=== PATIENT | male | born 1960 | race Caucasian/White ===

== ENCOUNTER 2018-05-23 09:02 | Day surgery (SDC) | payer OTHER ==
[~2018-05-23 09:02] MED LIST: ALBU90OI INH; AMOCLA875 PO; AMOX875 PO; CIPDEXSU RIGHTEAR; Cipro750 MG PO; Cleocin HCl300 MG PO; ERYT.5TO RIGHTEYE; Flonase 0.05% N16 GM; IBUP800 PO; MARIJUANA; MELO7.5 PO; METPRE4DP PO; MUSCLE RELAXER; Naprosyn500 MG PO; Norco 10-325 T1 EACH PO; Norco 5-325 Ta1 EACH PO; Percocet 5-3251 EACH PO; Robaxin500 MG PO; TRAM50 PO; Ultram50 MG PO; Valium5 MG PO
== END 2018-05-23 22:41 | disposition home or self-care (01) ==
LOC: ORSCMMR 09:02 → ORD 10:00 → ORSCMMR 10:00
PROVIDERS: Internal Medicine Gastroenterology
PROC: 0DBN8ZX Excision of Sigmoid Colon, Via Natural or Artificial Opening Endoscopic, Diagnostic (ICD-10-PCS; principal; 2018-05-23 10:00)
PROC: 0DBM8ZX Excision of Descending Colon, Via Natural or Artificial Opening Endoscopic, Diagnostic (ICD-10-PCS; principal; 2018-05-23 10:00)
PROC: 0DBK8ZX Excision of Ascending Colon, Via Natural or Artificial Opening Endoscopic, Diagnostic (ICD-10-PCS; principal; 2018-05-23 10:00)
PROC: 0DBP8ZX Excision of Rectum, Via Natural or Artificial Opening Endoscopic, Diagnostic (ICD-10-PCS; principal; 2018-05-23 10:00)
DX: R15.9 Full incontinence of feces (principal); D12.2 Benign neoplasm of ascending colon; D12.4 Benign neoplasm of descending colon; D12.5 Benign neoplasm of sigmoid colon; K64.4 Residual hemorrhoidal skin tags; K62.1 Rectal polyp; F17.210 Nicotine dependence, cigarettes, uncomplicated
CPT/HCPCS: 88305; J7120

== ENCOUNTER 2019-07-06 09:08 | Emergency (ER) | payer OTHER ==
[~2019-07-06] VITALS: Ht 175.3 cm; Wt 76.7 kg
[2019-07-06] MEDS ORDERED: Naprosyn500 MG PO (09:40)
[2019-07-06] MEDS ORDERED: LIDO700A20 TOP (09:40)
[2019-07-06] MEDS ORDERED: Augmentin 875-1 EACH PO (09:40)
== END 2019-07-06 10:02 | disposition home or self-care (01) ==
LOC: ER 09:08
DX: K02.9 Dental caries, unspecified (principal); M54.5 Low back pain; Z79.899 Other long term (current) drug therapy; F17.200 Nicotine dependence, unspecified, uncomplicated
CPT/HCPCS: 99282

== ENCOUNTER 2019-08-25 10:29 | Emergency (ER) | payer OTHER ==
[~2019-08-25] VITALS: Ht 170.2 cm; Wt 77.1 kg
[~2019-08-25 10:29] MED LIST changes: +Augmentin 875-1 EACH PO; +LIDO700A20 TOP
[2019-08-25] MEDS ORDERED: Veetids 500500 MG PO (11:22)
== END 2019-08-25 11:58 | disposition home or self-care (01) ==
LOC: ER 10:29
DX: K02.9 Dental caries, unspecified (principal); F17.200 Nicotine dependence, unspecified, uncomplicated; Z79.899 Other long term (current) drug therapy
CPT/HCPCS: 99282

== ENCOUNTER 2021-01-22 13:29 | Emergency (ER) | payer OTHER ==
[~2021-01-22] VITALS: Ht 175.3 cm; Wt 78.9 kg
[~2021-01-22 13:29] MED LIST changes: +Veetids 500500 MG PO
[2021-01-22 14:14] LABS: BASOPHILS ABSOLUTE AUTO 0.05 K/mm3 (0.00-0.23); BASOPHILS PERCENT AUTO 0 % (0-2); EOSINOPHILS ABSOLUTE AUTO 0.17 K/mm3 (0.00-0.68); EOSINOPHILS PERCENT AUTO 1 % (0-6); Hemoglobin 20.9 g/dL (13.5-17.5); IMMATURE GRAN ABSOLUTE AUTO 0.05 K/mm3 (0.00-0.10); IMMATURE GRAN PERCENT AUTO 0 % (0-1); LYMPHOCYTES ABSOLUTE AUTO 0.82 K/mm3 (0.84-5.20); LYMPHOCYTES PERCENT AUTO 7 % (21-46); MONOCYTES ABSOLUTE AUTO 0.46 K/mm3 (0.16-1.47); MONOCYTES PERCENT AUTO 4 % (4-13); Mean Corpuscular HGB 29.8 pg (26.0-34.0); Mean Corpuscular HGB Conc 34.5 g/dL (31.5-36.5); Mean Corpuscular Volume 86 fL (80-100); Mean Platelet Volume 9.3 fL (9.1-12.4); NEUTROPHILS ABSOLUTE AUTO 10.73 K/mm3 (1.96-9.15); NEUTROPHILS PERCENT AUTO 87 % (41-73); Platelet Count 304 K/mm3 (150-400); RDW Coefficient Variation 12.9 % (11.7-14.2); Red Blood Cell Count 7.02 M/mm3 (4.30-5.90); White Blood Cell Count 12.28 K/mm3 (4.00-11.30)
[2021-01-22 14:24] LABS: Hematocrit 60.6 % (37.0-53.0)
[2021-01-22 14:42] LABS: Alanine Aminotransfer (ALT/SGP 77 U/L (12-78); Albumin, Blood 4.4 g/dL (3.4-5.0); Alk Phos 106 U/L (50-136); Anion Gap 6 mmol/L (6-16); Aspartate Aminotrans (AST/SGOT 41 U/L (12-37); Blood Urea Nitrogen 14 mg/dL (8-24); Bun/Creatinine Ratio 14.2 (12.0-20.0); CO2, Blood 26 mmol/L (21-32); Calcium, Blood 9.7 mg/dL (8.5-10.1); Chloride, Blood 104 mmol/L (98-108); Creatinine, Blood 0.98 mg/dL (0.60-1.20); Globulin, Blood 4.6 g/dL (2.2-4.0); Glomerular Filtration Rate >60 (60-); Glucose, Blood 103 mg/dL (70-99); Potassium, Blood 4.2 mmol/L (3.5-5.5); Sodium, Blood 136 mmol/L (136-145)
[2021-01-22 17:13] LABS: SARS-Cov-2 (COVID-19) PCR, MMC NEGATIVE (NEGATIVE)
[2021-01-22] MEDS ORDERED: ONDA4ODT SL (18:00)
[2021-01-22] MEDS ORDERED: IMODIUM A-D2 M1 PO (18:00)
== END 2021-01-22 18:15 | disposition home or self-care (01) ==
LOC: ER 13:29
PROVIDERS: Physician Assistant
DX: R19.7 Diarrhea, unspecified (principal); R11.2 Nausea with vomiting, unspecified; R51.9 Headache, unspecified; F17.200 Nicotine dependence, unspecified, uncomplicated; Z20.822 Contact with and (suspected) exposure to COVID-19
CPT/HCPCS: 36415; 80053; 83690; 85025; 96374; 96375; 99284-25; A9270; J1200; J1885; J2765; J7030; U0004

== ENCOUNTER 2021-04-29 08:59 | Observation (INO) | payer OTHER ==
[~2021-04-29] VITALS: Ht 170.2 cm; Wt 76.2 kg
[~2021-04-29 08:59] MED LIST changes: +IMODIUM A-D2 M1 PO; +ONDA4ODT SL
[2021-04-29 09:56] LABS: BASOPHILS ABSOLUTE AUTO 0.06 K/mm3 (0.00-0.23); BASOPHILS PERCENT AUTO 1 % (0-2); EOSINOPHILS ABSOLUTE AUTO 0.13 K/mm3 (0.00-0.68); EOSINOPHILS PERCENT AUTO 2 % (0-6); Hematocrit 53.2 % (37.0-53.0); Hemoglobin 18.1 g/dL (13.5-17.5); IMMATURE GRAN ABSOLUTE AUTO 0.02 K/mm3 (0.00-0.10); IMMATURE GRAN PERCENT AUTO 0 % (0-1); LYMPHOCYTES ABSOLUTE AUTO 1.72 K/mm3 (0.84-5.20); LYMPHOCYTES PERCENT AUTO 29 % (21-46); MONOCYTES ABSOLUTE AUTO 0.45 K/mm3 (0.16-1.47); MONOCYTES PERCENT AUTO 8 % (4-13); Mean Corpuscular HGB 29.3 pg (26.0-34.0); Mean Corpuscular Volume 86 fL (80-100); Mean Platelet Volume 8.9 fL (9.1-12.4); NEUTROPHILS ABSOLUTE AUTO 3.47 K/mm3 (1.96-9.15); NEUTROPHILS PERCENT AUTO 59 % (41-73); Platelet Count 239 K/mm3 (150-400); RDW Coefficient Variation 13.6 % (11.7-14.2); RDW Standard Deviation 43.1 fL (35.1-46.3); Red Blood Cell Count 6.17 M/mm3 (4.30-5.90); White Blood Cell Count 5.85 K/mm3 (4.00-11.30)
[2021-04-29 10:09] LABS: Alanine Aminotransfer (ALT/SGP 83 U/L (12-78); Albumin, Blood 3.4 g/dL (3.4-5.0); Albumin/Globulin Ratio 0.9 (0.8-1.8); Alk Phos 83 U/L (50-136); Anion Gap 5 mmol/L (6-16); Aspartate Aminotrans (AST/SGOT 44 U/L (12-37); Bilirubin, Total 0.7 mg/dL (0.1-1.0); Blood Urea Nitrogen 15 mg/dL (8-24); Bun/Creatinine Ratio 17.5 (12.0-20.0); CO2, Blood 27 mmol/L (21-32); Calcium, Blood 8.7 mg/dL (8.5-10.1); Chloride, Blood 108 mmol/L (98-108); Creatinine, Blood 0.86 mg/dL (0.60-1.20); Globulin, Blood 3.8 g/dL (2.2-4.0); Glomerular Filtration Rate >60 (60-); Glucose, Blood 94 mg/dL (70-99); Potassium, Blood 3.8 mmol/L (3.5-5.5); Sodium, Blood 140 mmol/L (136-145); Total Protein, Blood 7.2 g/dL (6.4-8.2); Troponin I <0.015 ng/mL (0.000-0.040)
[2021-04-29 14:59] LABS: CHOL/HDL RATIO 4.2; Cholesterol 154 mg/dL (50-200); HDL Cholesterol 37 mg/dL (>39); LDL/HDL RATIO 2.8; Low Density Lipoprotein Chol 102 mg/dL (0-110); Triglycerides 75 mg/dL (30-160); Very Low Density Lipoprot Chol 15 mg/dL (6-32)
[2021-04-29 15:17] LABS: U Cannabinoids Screen DETECTED
[2021-04-29 15:18] LABS: U Amphetamine Screen Not Detected; U Barbituate Screen Not Detected; U Benzodiazapine Screen Not Detected; U Buprenorphine Screen Not Detected; U Cocaine Screen Not Detected; U Methadone Screen Not Detected; U Methamphetamine Screen Not Detected; U Opiates Screen Not Detected; U Oxycodone Screen Not Detected; U Phencyclidine Screen Not Detected; U Propoxyphene Screen Not Detected
--- NOTE | 2021-04-29 16:26 | NUR ---
ADMISSION: REPORT RECEIVED FROM TOMMIE SIN RN. PT TO UNIT AT 1520, VSS, A/O. PT REPORTS ACHY PAIN AT CHEST AND SHARP PAIN AT BACK. NUC MED IN ROOM FOR STRESS TEST AT ABOUT 1345. PT MEDICATED PER EMAR FOR PAIN AND ALLOWED TO EAT . REPORT PASSED TO JAYNE AT THIS TIME.
--- NOTE | 2021-04-29 18:10 | NUR ---
ASSUMPTION OF CARE ASSUMED CARE OF PT. PT IS A & O AND SITTING UP IN BED. HE IS INDEPENDENT IN ROOM. REPORTED PAIN IN MID UPPER BACK AND TREATED PER EMAR. WILL CONTINUE TO MONITOR.
--- NOTE | 2021-04-29 18:37 | NUR ---
SHIFT SUMMARY ASSUMED CARE FROM ERNESTINE WILSON THIS AFTERNOON. NO CHANGES FROM PT SINCE ASSUMPTION OF CARE. PT IS CURRENTLY RESTING IN BED AND PAIN IS CONTROLLED PER EMAR.
--- NOTE | 2021-04-29 20:58 | NUR ---
PT UP IN HALLS AT SHIFT CHANGE REQUESTING TO GO HOME. DISCUSSED CARDIAC WORK UP AND SERIAL TROPS,STRESS TEST DONE TODAY. PT WANTING DR JOEL.I SPOKE WITH DR CHATMAN AND HE VERB HE WILL NOT BE DISCHARING PT TONIGHT AND IT WOULD BE POOR CHOICE FOR PT TO LEAVE AMA.I ADVISED PT UNABLE TO DISCHARGE TONIGHT AND TROP JUST DRAWN.DISCUSSED PURPOSE OF SERIAL TROP AND PENDING COMPLETION OF WORK UP. PT VERB UNDERSTANDING OF RISK IF HE WAS TO SIGN OUT AMA AND AGREED TO STAY.
--- NOTE | 2021-04-29 23:54 | NUR ---
PER STUDENT ACTIVITIES DIRECTOR, PT HAS BEEN AVERAGING RATE OF 44 WHILE AWAKE.PT REQUESTING PAIN MEDS FOR BACK PAIN BELOW L SCAPULA.I ADVISED DR CHATMAN OF PTS HEART RATE AND REQUEST FOR MEDS.DOCTOR OKD PT TAKING ULTRAM PER EMAR.
--- NOTE | 2021-04-30 00:35 | NUR ---
PT DECLINING OFFER OF PAIN MEDS AT THIS TIME,
[2021-04-30 05:04] LABS: BASOPHILS ABSOLUTE AUTO 0.06 K/mm3 (0.00-0.23); BASOPHILS PERCENT AUTO 1 % (0-2); EOSINOPHILS ABSOLUTE AUTO 0.21 K/mm3 (0.00-0.68); EOSINOPHILS PERCENT AUTO 3 % (0-6); Hematocrit 52.9 % (37.0-53.0); Hemoglobin 17.8 g/dL (13.5-17.5); IMMATURE GRAN ABSOLUTE AUTO 0.02 K/mm3 (0.00-0.10); IMMATURE GRAN PERCENT AUTO 0 % (0-1); LYMPHOCYTES ABSOLUTE AUTO 2.23 K/mm3 (0.84-5.20); LYMPHOCYTES PERCENT AUTO 32 % (21-46); MONOCYTES PERCENT AUTO 9 % (4-13); Mean Corpuscular HGB 29.1 pg (26.0-34.0); Mean Corpuscular HGB Conc 33.6 g/dL (31.5-36.5); Mean Corpuscular Volume 86 fL (80-100); NEUTROPHILS ABSOLUTE AUTO 3.96 K/mm3 (1.96-9.15); NEUTROPHILS PERCENT AUTO 56 % (41-73); Platelet Count 256 K/mm3 (150-400); RDW Coefficient Variation 13.5 % (11.7-14.2); Red Blood Cell Count 6.12 M/mm3 (4.30-5.90); White Blood Cell Count 7.08 K/mm3 (4.00-11.30)
[2021-04-30 05:38] LABS: Alanine Aminotransfer (ALT/SGP 78 U/L (12-78); Albumin, Blood 3.4 g/dL (3.4-5.0); Alk Phos 74 U/L (50-136); Anion Gap 4 mmol/L (6-16); Aspartate Aminotrans (AST/SGOT 46 U/L (12-37); Bilirubin, Total 0.8 mg/dL (0.1-1.0); Blood Urea Nitrogen 17 mg/dL (8-24); Bun/Creatinine Ratio 16.5 (12.0-20.0); CO2, Blood 29 mmol/L (21-32); Calcium, Blood 8.9 mg/dL (8.5-10.1); Chloride, Blood 104 mmol/L (98-108); Creatinine, Blood 1.03 mg/dL (0.60-1.20); Globulin, Blood 3.4 g/dL (2.2-4.0); Glomerular Filtration Rate >60 (60-); Glucose, Blood 81 mg/dL (70-99); Potassium, Blood 3.9 mmol/L (3.5-5.5); Sodium, Blood 137 mmol/L (136-145); Total Protein, Blood 6.8 g/dL (6.4-8.2)
--- NOTE | 2021-04-30 07:35 | NUR ---
SUMMARY PT REMAINED SINUS QUINCY T/O SHIFT. AVERAGE HEART RATE 48. SLEPT T/O THE NIGHT. HOPES FOR DISCHARGE HOME THIS AM.
[2021-04-30] MEDS ORDERED: Nicoderm Cq1 EAC1 TOP (11:12)
[2021-04-30] MEDS ORDERED: TRAM50 PO (11:13)
[2021-04-30] MEDS ORDERED: ACET500 PO (11:15)
[2021-04-30] MEDS ORDERED: ATOR10 PO (11:15)
[2021-04-30] MEDS ORDERED: ONDA4ODT MM (11:16)
[2021-04-30] MEDS ORDERED: PANT20 PO (11:17)
[2021-04-30] MEDS ORDERED: Prednisone10 MG PO (11:18)
--- NOTE | 2021-04-30 11:39 | NUR ---
DISCHARGE INSTRUCTIONS REVIEWED WITH PATIENT AND PATIENT DENIES ANY QUESTIONS REGARDING INSTRUCTIONS. PT PRESCRIPTIONS FAXED TO [facility] PER PATIENT REQUEST. PT DISCHARGED AMBULATORY AT 1125
== END 2021-04-30 11:25 | disposition home or self-care (01) ==
LOC: ER 08:59 → SURS 09:00 → ERHOLD 09:00 → SURS 15:42
PROVIDERS: Emergency Medicine; ADMIT Family Medicine
DX: R07.89 Other chest pain (principal); E04.1 Nontoxic single thyroid nodule; M50.30 Other cervical disc degeneration, unspecified cervical region; M51.34 Other intervertebral disc degeneration, thoracic region; F17.210 Nicotine dependence, cigarettes, uncomplicated; I45.10 Unspecified right bundle-branch block; J43.9 Emphysema, unspecified; R71.8 Other abnormality of red blood cells; G89.4 Chronic pain syndrome; R00.1 Bradycardia, unspecified; R79.89 Other specified abnormal findings of blood chemistry
CPT/HCPCS: 36415; 71046; 71275; 78452; 80053; 80061; 84439; 84443; 84481; 84484; 85025; 93005; 93010; 93017; 96374; 96375; 96376; 99285-25; A9270; A9500; G0378; J0706; J2405; J2785; J3010; Q9967

== ENCOUNTER → 2024-05-22 | Outpatient (CLI) | payer OTHER ==
[~2024-05-22] MED LIST changes: +ACET500 PO; +ATOR10 PO; +Nicoderm Cq1 EAC1 TOP; +ONDA4ODT MM; +PANT20 PO; +Prednisone10 MG PO
[2024-05-22 11:40] LABS: BASOPHILS ABSOLUTE AUTO 0.08 K/mm3 (0.00-0.23); BASOPHILS PERCENT AUTO 1 % (0-2); EOSINOPHILS ABSOLUTE AUTO 0.26 K/mm3 (0.00-0.68); EOSINOPHILS PERCENT AUTO 3 % (0-6); Hematocrit 54.5 % (37.0-53.0); Hemoglobin 18.8 g/dL (13.5-17.5); IMMATURE GRAN ABSOLUTE AUTO 0.02 K/mm3 (0.00-0.10); IMMATURE GRAN PERCENT AUTO 0 % (0-1); LYMPHOCYTES ABSOLUTE AUTO 1.93 K/mm3 (0.84-5.20); LYMPHOCYTES PERCENT AUTO 25 % (21-46); MONOCYTES ABSOLUTE AUTO 0.49 K/mm3 (0.16-1.47); MONOCYTES PERCENT AUTO 6 % (4-13); Mean Corpuscular HGB 30.5 pg (26.0-34.0); Mean Corpuscular HGB Conc 34.5 g/dL (31.5-36.5); Mean Corpuscular Volume 88 fL (80-100); Mean Platelet Volume 9.2 fL (9.1-12.4); NEUTROPHILS ABSOLUTE AUTO 4.82 K/mm3 (1.96-9.15); NEUTROPHILS PERCENT AUTO 63 % (41-73); Platelet Count 243 K/mm3 (150-400); RDW Coefficient Variation 13.7 % (11.7-14.2); RDW Standard Deviation 43.5 fL (35.1-46.3); Red Blood Cell Count 6.17 M/mm3 (4.30-5.90)
[2024-05-22 11:46] LABS: Bun/Creatinine Ratio 9.3 (12.0-20.0); Calcium, Blood 9.2 mg/dL (8.5-10.1); Creatinine, Blood 1.07 mg/dL (0.60-1.20)
== END | disposition home or self-care (01) ==
LOC: LAB 11:36 → LAB SHORT 11:36
PROVIDERS: Chiropractor
DX: R42 Dizziness and giddiness (principal)
CPT/HCPCS: 80048; 85025

== ENCOUNTER → 2025-05-28 | Outpatient (CLI) | payer OTHER | LOC: LAB SHORT 08:14 → LAB 08:14 | DX: L82.1 Other seborrheic keratosis (principal) | CPT/HCPCS: 88305 ==